=== PATIENT | male | born 1955 | race Caucasian/White ===

== ENCOUNTER 2024-08-27 20:44 | Inpatient (IN) | payer MEDICARE, MEDICAID ==
[~2024-08-27] VITALS: Ht 190.5 cm; Wt 120.0 kg
[2024-08-27 21:25] LABS: BASOPHILS # (AUTO) 0.1 X10'3 (0-0.2); BASOPHILS % (AUTO) 1.3 % (0-1); EOSINOPHILS # (AUTO) 0.3 X10'3 (0-0.9); EOSINOPHILS % (AUTO) 2.9 % (0-6); HEMATOCRIT 47.6 % (42.0-52.0); HEMOGLOBIN 15.6 g/dl (14.0-17.9); LYMPHOCYTES # (AUTO) 3.3 X10'3 (1.1-4.8); LYMPHOCYTES % (AUTO) 30.3 % (21-51); MEAN CORPUSCULAR HGB CONC 32.8 g/dL (33.0-36.5); MEAN CORPUSCULAR VOLUME 85.3 FL (78-98); MONOCYTES % (AUTO) 9.6 % (2-12); NEUTROPHILS # (AUTO) 6.1 X10'3 (1.8-7.7); NEUTROPHILS % (AUTO) 55.9 % (42-75); PLATELET COUNT 263 X10'3 (140-440); RED BLOOD COUNT 5.58 X10'6 (4.70-6.10); RED CELL DISTRIBUTION WIDTH 14.7 % (11.5-14.5)
[2024-08-27 21:39] LABS: ALANINE AMINOTRANSFERASE 31 U/L (12-78); ALBUMIN 3.9 G/DL (3.4-5.0); ALBUMIN/GLOBULIN RATIO 1.3 (1.1-1.5); ALKALINE PHOSPHATASE 79 IU/L (46-116); ANION GAP 12 (8-16); ASPARTATE AMINO TRANSFERASE 16 U/L (10-37); BILIRUBIN,TOTAL 0.7 MG/DL (0.1-1.0); BLOOD UREA NITROGEN 24 MG/DL (7-18); BUN/CREATININE RATIO 18.6 (10.0-20.0); CALCIUM 9.1 MG/DL (8.5-10.1); CHLORIDE 103 MMOL/L (99-107); CREATININE 1.29 MG/DL (0.60-1.10); GLUCOSE 119 MG/DL (70-104); POTASSIUM 3.8 MMOL/L (3.5-5.1); SODIUM 137 MMOL/L (135-145); TOTAL CARBON DIOXIDE 22.5 MMOL/L (24-32); eCRCL 63 ML/MIN; eGFR 55 ML/MIN
[2024-08-27 21:47] LABS: PRO BRAIN NATRIURETIC PEPTIDE 3296 PG/ML (0-125)
[2024-08-27] MEDS: diltiazem 5mg/ml 5ml inj. IV ONE (22:09)
[2024-08-27] MEDS: magnesium sulf-water 2g/50mL 50 ML IV ONE (22:10)
[2024-08-27] MEDS: furosemide 10 MG/1 ML 10ml inj IV ONE (23:28)
[2024-08-27] MEDS: diltiazem-NS 100mg/100ml 100 ML IV SCH (23:30)
[2024-08-27] MEDS ORDERED: diltiazem-D5W 125mg/125ml 125 ML IV SCH (23:45)
[2024-08-28] VITALS (25 sets, daily range): BP systolic 105–177; BP diastolic 51–124; PULSE 66–155; RESP 13–30; TEMP 97.3–97.9; O2SAT 94–99
[2024-08-28] MEDS ORDERED: HYDROcodone/acetaminophen 5mg/325mg tablet PO PRN (00:10)
[2024-08-28] MEDS ORDERED: HYDROcodone/acetaminophen 10/325mg tab PO PRN (00:10)
[2024-08-28] MEDS ORDERED: acetaminophen 325mg tablet PO PRN ×2 (00:10)
[2024-08-28] MEDS ORDERED: magnesium sulf-water 2g/50mL 50 ML IV PRN (00:10)
[2024-08-28] MEDS ORDERED: potassium Cl 40MEQ/1/2NS 520ml 520 ML IV PRN (00:10)
[2024-08-28] MEDS ORDERED: magnesium Cl slow-release 64mg tablet PO PRN (00:10)
[2024-08-28] MEDS ORDERED: magnesium hydroxide 30ml (MOM) UD suspension PO PRN (00:10)
[2024-08-28] MEDS ORDERED: magnesium sulf-water 4G/100mL 100 ML IV PRN (00:10)
[2024-08-28] MEDS ORDERED: ondansetron/PF 4mg/2ml inj IV PRN (00:10)
[2024-08-28] MEDS ORDERED: potassium Cl 20 mEq SR tablet PO PRN ×2 (00:10)
[2024-08-28] MEDS: diltiazem-NS 100mg/100ml 100 ML IV SCH (00:13)
[2024-08-28 00:38] LABS: APTT 27 SECONDS (22-32); INR 1.1 INR; PROTHROMBIN TIME 11.5 SECONDS (9.0-12.0)
[2024-08-28] MEDS ORDERED: LISI10TA27 PO (00:41)
[2024-08-28 00:46] LABS: HEMOGLOBIN A1C 5.7 % (4.5-6.2)
[2024-08-28 00:54] LABS: FREE T4 (FREE THYROXINE) 0.97 NG/DL (0.73-1.40); THYROID STIMULATING HORMONE 3.72 ulU/ml (0.34-4.50)
[2024-08-28 00:54] LABS: BILIRUBIN,URINE NEGATIVE (Neg); CLARITY,URINE CLEAR (Clear); COLOR,URINE YELLOW (Yellow); GLUCOSE, URINE NEGATIVE (Neg); KETONES,URINE NEGATIVE (Neg); LEUKOCYTE ESTERASE ,URINE NEGATIVE (Neg); NITRITES, URINE NEGATIVE (Neg); OCCULT BLOOD,URINE NEGATIVE (Neg); PH,URINE 5.5 (4.8-8.0); PROTEIN,URINE NEGATIVE (Neg); UROBILINOGEN,URINE 0.2 E.U/dL (0.2-1.0)
[2024-08-28 01:05] LABS: UA COLLECTION TYPE NON-SPECIFIED
[2024-08-28 01:08] LABS: D-DIMER 1.14 MG/L FEU (0-0.50)
[2024-08-28] MEDS: hydrALAZINE 20mg/ml inj. IV ONE (02:06)
[2024-08-28] MEDS: tamsulosin 0.4mg capsule PO SCH (03:32)
[2024-08-28 07:23] LABS: MAGNESIUM 2.4 MG/DL (1.5-2.4); POTASSIUM 3.9 MMOL/L (3.5-5.1)
[2024-08-28] MEDS: apixaban 5mg tablet PO SCH (07:58)
[2024-08-28] MEDS: lisinopril 10 MG tablet PO SCH (07:58)
[2024-08-28] MEDS: docusate sod 100mg capsule PO SCH (07:59)
[2024-08-28] MEDS ORDERED: enoxaparin 40mg/0.4ml syringe SUBCUT SCH (08:00)
[2024-08-28] MEDS: furosemide 10 MG/1 ML 10ml inj IV SCH (08:00)
[2024-08-28] MEDS: K and/or MAG REPLACEMENT MC SCH (08:00)
[2024-08-28] MEDS: normal saline 1000ml 1,000 ML IV ONE (08:10)
[2024-08-28] MEDS ORDERED: iohexol 350MG/ML 100ml bottle IV ONE (13:08)
[2024-08-29] VITALS (14 sets, daily range): BP systolic 109–134; BP diastolic 68–112; PULSE 88–150; RESP 11–26; TEMP 97–97.8; O2SAT 94–99
[2024-08-29 06:59] LABS: BASOPHILS # (AUTO) 0.1 X10'3 (0-0.2); EOSINOPHILS # (AUTO) 0.2 X10'3 (0-0.9); EOSINOPHILS % (AUTO) 2.9 % (0-6); HEMOGLOBIN 14.2 g/dl (14.0-17.9); LYMPHOCYTES # (AUTO) 2.2 X10'3 (1.1-4.8); LYMPHOCYTES % (AUTO) 26.6 % (21-51); MEAN CORPUSCULAR HEMOGLOBIN 28.4 PG (27.0-31.0); MEAN CORPUSCULAR HGB CONC 33.8 g/dL (33.0-36.5); MEAN CORPUSCULAR VOLUME 84.3 FL (78-98); MEAN PLATELET VOLUME 9.9 FL (7.4-10.4); MONOCYTES # (AUTO) 0.8 X10'3 (0-0.9); MONOCYTES % (AUTO) 10.4 % (2-12); NEUTROPHILS # (AUTO) 4.8 X10'3 (1.8-7.7); NEUTROPHILS % (AUTO) 59.1 % (42-75); PLATELET COUNT 211 X10'3 (140-440); RED BLOOD COUNT 4.98 X10'6 (4.70-6.10); RED CELL DISTRIBUTION WIDTH 14.5 % (11.5-14.5); WHITE BLOOD COUNT 8.1 X10'3 (4.5-11.0)
[2024-08-29 07:18] LABS: ALBUMIN 3.4 G/DL (3.4-5.0); ANION GAP 8 (8-16); BLOOD UREA NITROGEN 16 MG/DL (7-18); CALCIUM 8.5 MG/DL (8.5-10.1); CHLORIDE 105 MMOL/L (99-107); CHOL/HDL RATIO 4.4 (0.00-4.99); CHOLESTEROL 140 MG/DL (0-200); CREATININE 1.14 MG/DL (0.60-1.10); GLUCOSE 115 MG/DL (70-104); HDL CHOLESTEROL 32 MG/DL (35-60); LDL CHOLESTEROL 92 MG/DL (50-100); MAGNESIUM 2.1 MG/DL (1.5-2.4); POTASSIUM 3.8 MMOL/L (3.5-5.1); SODIUM 136 MMOL/L (135-145); TOTAL CARBON DIOXIDE 22.9 MMOL/L (24-32); TRIGLYCERIDES 75 MG/DL (20-135); eCRCL 71 ML/MIN; eGFR 63 ML/MIN
[2024-08-29] MEDS ORDERED: lisinopril 10 MG tablet PO SCH (08:00)
[2024-08-29] MEDS: diltiazem-NS 100mg/100ml 100 ML IV SCH (08:32)
[2024-08-29] MEDS: flecainide 50mg tablet PO SCH (10:14)
[2024-08-29] MEDS: carvedilol 6.25mg tablet PO SCH (10:14)
[2024-08-29] MEDS ORDERED: furosemide 40mg/4ml inj IV SCH (11:40)
[2024-08-29] MEDS ORDERED: aminophylline 500mg/20ml vial IV PRN (14:30)
[2024-08-29] MEDS ORDERED: metoprolol tartrate 1mg/ml inj IV PRN (14:30)
[2024-08-29] MEDS: carVEDilol 12.5mg tablet PO SCH (20:27)
[2024-08-29] MEDS: furosemide 40mg/4ml inj IV SCH (20:28)
[2024-08-29] MEDS: metoprolol tartrate 1mg/ml inj IV SCH (23:35)
[2024-08-30] VITALS (17 sets, daily range): BP systolic 93–164; BP diastolic 63–108; PULSE 71–150; RESP 11–25; TEMP 97–97.9; O2SAT 98–100
[2024-08-30] MEDS: mag hydrox/Alum hydrox/simeth 30ml oral suspension PO PRN (00:56)
[2024-08-30] MEDS: nitroGLYCERIN 0.4mg SUBLingual tab SL PRN (01:17)
[2024-08-30 01:29] LABS: ALBUMIN 3.7 G/DL (3.4-5.0); ANION GAP 12 (8-16); BLOOD UREA NITROGEN 26 MG/DL (7-18); BUN/CREATININE RATIO 19.3 (10.0-20.0); CALCIUM 9.3 MG/DL (8.5-10.1); CHLORIDE 102 MMOL/L (99-107); CREATININE 1.35 MG/DL (0.60-1.10); GLUCOSE 174 MG/DL (70-104); MAGNESIUM 2.1 MG/DL (1.5-2.4); POTASSIUM 4.3 MMOL/L (3.5-5.1); SODIUM 136 MMOL/L (135-145); TOTAL CARBON DIOXIDE 22.5 MMOL/L (24-32); eCRCL 60 ML/MIN; eGFR 52 ML/MIN
[2024-08-30] MEDS: furosemide 20 MG/2 ML vial IV ONE (01:50)
[2024-08-30 06:46] LABS: BASOPHILS % (AUTO) 0.6 % (0-1); EOSINOPHILS % (AUTO) 0.2 % (0-6); HEMOGLOBIN 14.7 g/dl (14.0-17.9); LYMPHOCYTES # (AUTO) 1.3 X10'3 (1.1-4.8); MEAN CORPUSCULAR HEMOGLOBIN 28.4 PG (27.0-31.0); MEAN PLATELET VOLUME 10.3 FL (7.4-10.4); MONOCYTES # (AUTO) 0.5 X10'3 (0-0.9); NEUTROPHILS # (AUTO) 6.6 X10'3 (1.8-7.7)
[2024-08-30 06:49] LABS: HEMATOCRIT 43.8 % (42.0-52.0); LYMPHOCYTES % (AUTO) 15.5 % (21-51); MEAN CORPUSCULAR HGB CONC 33.5 g/dL (33.0-36.5); MEAN CORPUSCULAR VOLUME 84.9 FL (78-98); MONOCYTES % (AUTO) 5.6 % (2-12); NEUTROPHILS % (AUTO) 78.1 % (42-75); PLATELET COUNT 238 X10'3 (140-440); RED BLOOD COUNT 5.16 X10'6 (4.70-6.10); RED CELL DISTRIBUTION WIDTH 14.4 % (11.5-14.5); WHITE BLOOD COUNT 8.4 X10'3 (4.5-11.0)
[2024-08-30] MEDS: regadenoson 0.4mg/5ml syringe IV PRN (09:14)
[2024-08-30] MEDS: amiodarone 200mg tablet PO SCH (13:07)
[2024-08-31] VITALS (29 sets, daily range): BP systolic 87–155; BP diastolic 52–110; PULSE 47–127; RESP 6–24; TEMP 96.8–97.9; O2SAT 93–99
[2024-08-31 06:48] LABS: BASOPHILS # (AUTO) 0.1 X10'3 (0-0.2); BASOPHILS % (AUTO) 0.6 % (0-1); EOSINOPHILS # (AUTO) 0.2 X10'3 (0-0.9); EOSINOPHILS % (AUTO) 2.1 % (0-6); HEMATOCRIT 40.8 % (42.0-52.0); HEMOGLOBIN 13.6 g/dl (14.0-17.9); LYMPHOCYTES # (AUTO) 2.9 X10'3 (1.1-4.8); LYMPHOCYTES % (AUTO) 33.5 % (21-51); MEAN CORPUSCULAR HEMOGLOBIN 28.2 PG (27.0-31.0); MEAN CORPUSCULAR HGB CONC 33.3 g/dL (33.0-36.5); MEAN CORPUSCULAR VOLUME 84.5 FL (78-98); MEAN PLATELET VOLUME 10.1 FL (7.4-10.4); MONOCYTES # (AUTO) 0.8 X10'3 (0-0.9); MONOCYTES % (AUTO) 8.9 % (2-12); NEUTROPHILS # (AUTO) 4.8 X10'3 (1.8-7.7); NEUTROPHILS % (AUTO) 54.9 % (42-75); PLATELET COUNT 202 X10'3 (140-440); RED BLOOD COUNT 4.83 X10'6 (4.70-6.10); RED CELL DISTRIBUTION WIDTH 14.3 % (11.5-14.5); WHITE BLOOD COUNT 8.8 X10'3 (4.5-11.0)
[2024-08-31 07:13] LABS: ALBUMIN 3.2 G/DL (3.4-5.0); ANION GAP 11 (8-16); BLOOD UREA NITROGEN 31 MG/DL (7-18); BUN/CREATININE RATIO 23.7 (10.0-20.0); CALCIUM 8.7 MG/DL (8.5-10.1); CHLORIDE 103 MMOL/L (99-107); CREATININE 1.31 MG/DL (0.60-1.10); GLUCOSE 113 MG/DL (70-104); POTASSIUM 3.7 MMOL/L (3.5-5.1); SODIUM 138 MMOL/L (135-145); eCRCL 62 ML/MIN; eGFR 54 ML/MIN
[2024-08-31 09:10] LABS: PRO BRAIN NATRIURETIC PEPTIDE 3134 PG/ML (0-125)
[2024-08-31] MEDS: morphine 10mg/ml inj. IV ONE (09:10)
[2024-08-31] MEDS: MIDAZolam 1mg/ml 10ml vial IV ONE (09:10)
[2024-08-31] MEDS: midazolam 1 mg/ML 2ml injection IV ONE (09:25)
[2024-08-31] MEDS: amiodarone 150mg/dext, iso-os 100 ML IV ONE (09:26)
[2024-08-31] MEDS ORDERED: CARV12.545 PO (16:44)
[2024-08-31] MEDS ORDERED: FURO20TA4 PO (16:44)
[2024-08-31] MEDS ORDERED: APIX5TAB3 PO (16:44)
[2024-08-31] MEDS ORDERED: AMI200T PO (16:44)
== END 2024-08-31 17:50 | disposition home or self-care (01) | DRG 280 ==
LOC: ER 20:44 → ED HOLD 23:32 → EDBEDREQTM 23:44 → EDBEDREQ 23:44 → EDBEDREQSVC 23:44 → PCU 3S 08-28 01:05
PROVIDERS: ADMIT Internal Medicine Pulmonary Disease; ATTEND Family Medicine
PROC: B32T1ZZ Computerized Tomography (CT Scan) of Left Pulmonary Artery using Low Osmolar Contrast (ICD-10-PCS; 2024-08-28)
PROC: B3201ZZ Computerized Tomography (CT Scan) of Thoracic Aorta using Low Osmolar Contrast (ICD-10-PCS; 2024-08-28)
PROC: B32S1ZZ Computerized Tomography (CT Scan) of Right Pulmonary Artery using Low Osmolar Contrast (ICD-10-PCS; 2024-08-28)
PROC: 4A02XM4 Measurement of Cardiac Total Activity, External Approach (ICD-10-PCS; principal; 2024-08-30)
PROC: 3E033HZ Introduction of Radioactive Substance into Peripheral Vein, Percutaneous Approach (ICD-10-PCS; 2024-08-30)
PROC: 5A2204Z Restoration of Cardiac Rhythm, Single (ICD-10-PCS; 2024-08-31)
PROC: B24BZZ4 Ultrasonography of Heart with Aorta, Transesophageal (ICD-10-PCS; 2024-08-31)
DX: I11.0 Hypertensive heart disease with heart failure (principal); I50.43 Acute on chronic combined systolic (congestive) and diastolic (congestive) heart failure; I21.A1 Myocardial infarction type 2; J96.01 Acute respiratory failure with hypoxia; I16.1 Hypertensive emergency; N17.9 Acute kidney failure, unspecified; Z20.822 Contact with and (suspected) exposure to COVID-19; I48.91 Unspecified atrial fibrillation; N40.0 Benign prostatic hyperplasia without lower urinary tract symptoms; F12.90 Cannabis use, unspecified, uncomplicated; E66.811 Obesity, class 1; Z68.33 Body mass index [BMI] 33.0-33.9, adult
CPT/HCPCS: 36415; 71045; 71275; 78452; 80048; 80053; 80061; 81003; 82948; 83036; 83605; 83735; 83880; 84132; 84439; 84443; 84484; 85025; 85379; 85610; 85730; 87040; 87081; 87502; 87503; 87811; 93005; 93017; 93306; 93312; 93325; 94760; 96365; 96367; 96375; 99291; A4615; A9500; C1758; G0378; J0282; J0360; J1940; J2785; J3490; J7030; Q9967